=== PATIENT | female | born 1980 | race Caucasian/White ===

== ENCOUNTER 2018-03-04 09:37 | Emergency (ER) | payer OTHER, SELFPAY ==
[2018-03-04 09:38] VITALS: BP 118/78; PULSE 79; RESP 16; TEMP 36.8; O2SAT 100; BMI 31.4
[2018-03-04] MEDS: Carbamide Peroxide 15 ML Bottle 10 DRP OTIC (10:15)
[2018-03-04 11:12] VITALS: BP 118/68; PULSE 75; RESP 18; O2SAT 98
--- NOTE | 2018-03-04 12:15 | ED.VISSUMM ---
- ER Visit Summary Date of Service: 03/04/18 Chief Complaint: Acute lightheadedness History of Present Illness: The patient is a 38 F who presents with lightheadedness. When asked to explain what she means she told me that she feels unsteady and the room is spinning. She does report nausea and vomiting. She reports difficulty walking. She states she got up this morning and turned to the right when she got out of bed. She had no symptoms. When she stood up and turned to the left her symptoms began. She denies any double vision, blurred vision or loss of vision. Denies ringing in her ears or decreased hearing. She denies headache. She denies neck pain. She denies paresthesia, anesthesia motors upper or lower extremity. She denies any cardiac respiratory symptoms. She denies any other symptoms Physical Examination: Pleasant 38-year-old woman who appears slightly pale. Vital signs are normal. Right TM is not visualized secondary to cerumen impaction of the external auditory canal. The left TM is normal. Nares patent. Uvula midline. No erythema or exudate of posterior pharynx. Trach is midline. There is no stridor. There is no carotid bruit. Neck is supple. Heart is regular without murmur, gallop or rub. S1 and S2 are normal. Lungs are clear to auscultation with good movement of air bilaterally. Abdomen is soft nontender. Patient is alert and oriented ?3. Motor is 5 over 5. Sensory is intact. DTRs are symmetric with no clonus or Babinski sign. Cranial 2 through 12 are intact. Cerebellar testing is normal. Tiffany-Hallpike maneuver was positive with head position to the left. Test Results: None Emergency Department Course and Treatment: The proximal right ear and irrigation. The cerumen impaction was resolved. Her vertigo improved markedly. Roxie-Hallpike maneuver was repeated and she still had symptoms with nystagmus noted with head turns of the left only. Leandra maneuver was performed with resolution of her symptoms. The nystagmus fatigue. Treatment Plan: Crystal manipulation or paroxysmal benign positional vertigo and Debrox to alleviate cerumen impaction right Disposition: Discharged home in stable improved condition Impression: 1. Paroxysmal benign positional vertigo with crystal manipulation 2. Cerumen impaction, right This note was generated with Neof[employer]ation software. It may contain incorrect words, spelling, and punctuation that were not noted in review of the chart prior to signing ED Disposition - Plan for ED Patient: Chief Complaint: Dizziness Instructions: ED BPV Vertigo, ED Cerumen Impaction, Home Care Referrals: Aleksey Ramirez MD [Primary Care Provider] - As Needed
[2018-03-04 12:28] VITALS: RESP 18
== END 2018-03-04 12:29 | disposition home or self-care (01) ==
PROVIDERS: Emergency Provider Emergency Medicine; Family Provider Family Medicine; PCP Family Medicine
DX: H81.10 Benign paroxysmal vertigo, unspecified ear (principal); H61.21 Impacted cerumen, right ear
CPT/HCPCS: 99283

== ENCOUNTER → 2018-10-14 11:13 | Outpatient (CLI) | payer OTHER, SELFPAY ==
[2018-10-14 14:01] LABS: Hematocrit 38.9 % (37-47); Hemoglobin 12.7 g/dl (12.0-15.0); Mean Corp Hgb Conc 32.6 g/gl (32-36); Mean Corpuscular Volume 88.8 fL (81-99); Mean Platelet Vol. 10.2 fl (6.2-12.0); Platelet Count 302 K/mm3 (150-450); RBC Distribution Width SD 42.1 fl (35.1-43.9); Red Blood Count 4.38 M/mm3 (4.2-5.4); White Blood Count 7.2 K/mm3 (4.4-11.0)
[2018-10-14 14:07] LABS: Scan Indicated on CBC? Y/N NO
[2018-10-14 14:11] LABS: Thyroid Stim Hormone (TSH) 0.76 uIU/mL (0.358-3.74)
[2018-10-17 14:56] LABS: HPV HC, High Risk Negative (Negative)
[2018-10-17 14:57] LABS: HPV Reflexed? YES, CHARGE PATIENT
== END ==
PROVIDERS: PCP Family Medicine; Visit Provider Obstetrics & Gynecology
DX: Z12.4 Encounter for screening for malignant neoplasm of cervix (principal); R53.83 Other fatigue; R63.5 Abnormal weight gain
CPT/HCPCS: 36415; 82306; 84443; 85027; 87624; 88175; G0145

== ENCOUNTER → 2020-10-10 07:59 | Outpatient (CLI) | payer OTHER, SELFPAY ==
[2020-10-10 10:10] LABS: Absolute Lymphocyte Count 1.85 X10^3/uL (0.83-4.51); Absolute Neutrophil Count 4.7 X10^3/uL (2.0-7.7); Basophil# 0.05 X10^3/uL; Basophil% 0.7 % (0-1); Eosinophil# 0.19 X10^3/uL; Eosinophils% 2.6 % (0-5); Hematocrit 38.9 % (37-47); Hemoglobin 12.7 g/dL (12.0-15.0); Lymphocyte # 1.85 X10^3/ul (4.0); Lymphocyte % 25.2 % (19-41); Mean Corp Hgb Conc 32.6 g/dL (32-36); Mean Corpuscular Hgb 29.2 pg (27.0-32.0); Mean Corpuscular Volume 89.4 fL (81-99); Mean Platelet Vol. 10.5 fl (6.2-12.0); Monocyte# 0.55 X10^3/uL; Monocyte% 7.5 % (0-10); NRBC Flagged by Analyzer 0 % (0-5); Neutrophil # 4.68 X10^3/uL (2.7-7.7); Neutrophil % 63.7 % (47-70); Platelet Count 272 K/mm3 (150-450); RBC Distribution Width CV 12.6 % (11.6-14.6); RBC Distribution Width SD 41.3 fl (35.1-43.9); Red Blood Count 4.35 M/mm3 (4.2-5.4); White Blood Count 7.3 K/mm3 (4.4-11.0)
[2020-10-10 10:11] LABS: Color, Urine Straw (Yellow); Glucose, Dipstick Normal (Normal); Ketone-Dipstick Negative (Negative); Leukocyte Esterase-Dipstick Negative /ul (Negative); Nitrite-Dipstick Negative (Negative); Occult Blood-Urine 10 /ul (Negative); Protein-Dipstick Negative (Negative); Specific Gravity, Urine 1.025 (1.002-1.030); Urine Bilirubin Dipstick Negative (Negative); Urine Clarity Clear (Clear); Urine Urobilinogen Normal (Normal)
[2020-10-10 10:40] LABS: AST(SGOT) 18 U/L (15-37); Alanine Aminotransfer ALT/SGPT 27 U/L (13-56); Albumin, Serum 3.5 g/dL (3.2-5.0); Alkaline Phosphatase 94 U/L (45-117); Anion Gap 5 (5-15); BUN 13 mg/dL (7-18); BUN/Creat Ratio 20.8 RATIO (10-20); Calcium,Total 8.7 mg/dL (8.5-10.1); Chloride 110 mmol/L (98-107); Cholesterol 199 mg/dL (200); Creatinine, Serum 0.63 mg/dL (0.55-1.02); EST Glomerular Filtration Rate 113 mL/min (>60); Est Glom Filt Rate - Afr Amer 137 mL/min (>60); Globulin 3.5 g/dL (2.2-4.2); Glucose 85 mg/dL (74-106); High Density Lipoprotein 46 mg/dL; Sodium Level 142 mmol/L (136-145); Triglycerides 87 mg/dL; Very Low Density Lipoprotein 17 mg/dL (5-40)
== END ==
PROVIDERS: PCP Family Medicine; Referring Provider Family Medicine; Visit Provider Family Medicine
DX: Z00.00 Encounter for general adult medical examination without abnormal findings (principal); E78.5 Hyperlipidemia, unspecified
CPT/HCPCS: 36415; 80053; 80061; 81002; 85025

== ENCOUNTER → 2021-06-12 | Outpatient (CLI) | payer OTHER, SELFPAY | END | disposition home or self-care (01) | LOC: LABSPEC 14:29 | PROVIDERS: PCP Family Medicine; Visit Provider Obstetrics & Gynecology | DX: Z03.818 Encounter for observation for suspected exposure to other biological agents ruled out (principal) | CPT/HCPCS: 87635; U0005; U0003 ==

== ENCOUNTER 2021-06-15 14:47 | Observation (INO) | payer OTHER, SELFPAY ==
[2021-06-12 13:45] LABS: Hematocrit 37.7 % (37-47); Hemoglobin 12.3 g/dL (12.0-15.0); Mean Corp Hgb Conc 32.6 g/dL (32-36); Mean Corpuscular Hgb 28.5 pg (27.0-32.0); Mean Corpuscular Volume 87.5 fL (81-99); Mean Platelet Vol. 10.2 fl (6.2-12.0); Platelet Count 274 K/mm3 (150-450); RBC Distribution Width SD 38.5 fl (35.1-43.9); Red Blood Count 4.31 M/mm3 (4.2-5.4); White Blood Count 7.4 K/mm3 (4.4-11.0)
[2021-06-12 14:07] LABS: Magnesium 2.1 mg/dL (1.6-2.6)
[2021-06-15] VITALS (16 sets, daily range): BP systolic 105–139; BP diastolic 67–80; PULSE 71–89; RESP 12–20; TEMP 35.5–37.2; O2SAT 98–100; BMI 34.7
[2021-06-15] MEDS: Lactated Ringers 1,000 ML 40 ML IV (08:16)
[2021-06-15] MEDS: Gabapentin 600 MG Tablet PO (08:18)
[2021-06-15] MEDS: Celecoxib 200 MG Capsule 400 MG PO (08:18)
[2021-06-15] MEDS: dexAMETHasone 10 MG/ML Vial 8 MG IV (08:18)
[2021-06-15] MEDS: Acetaminophen 500 MG Tablet 1000 MG PO ×2 (08:18→23:58)
--- NOTE | 2021-06-15 09:35 | HYST_PTH ---
PATIENT: ABRAM PEGUERO LOC: [facility]3 U#:[id number] AGE/SX: 41/F ROOM: MS306 RE06/15/[address]: Dr. Scott Angeles MD : 1980 BED: 1 DIS: 06/16/2021 SPEC #: [id number] RECD: 06/15/21 12:57 STATUS: JUAQUIN CHAPMAN #: [id number] ANNE: 06/15/21 09:[address]: Scott Angeles DEPT: SURGICAL PATHOLOGY RECD BY: Emma Coleman ENTERED: 06/15/21 13:33 SP TYPE: HYSTERECT OTHR DR: Dr. Aleksey Ramirez MD Tissues: Uterus, NOS Procedures: Surgery Specimen Level V HEADER OPERATION: ERAS, lap robotic hysterectomy, salpingectomy, cystoscopy PRE-OP DIAGNOSIS: Abnormal uterine bleeding TISSUE SUBMITTED: Uterus, cervix, bilateral fallopian tubes MICROSCOPIC DIAGNOSIS Uterus, cervix, bilateral fallopian tubes, hysterectomy and bilateral salpingectomy: Cervix ? mild chronic inflammation. Endometrium ? proliferative endometrium. Myometrium ? focal minimal superficial adenomyosis. Bilateral fallopian tubes - no pathologic diagnosis. SJ:kota 06/16/2021 MICROSCOPIC DESCRIPTION Slides are reviewed. GROSS DESCRIPTION Received in fixative is one container labeled with the patient's name and designated uterus, cervix, bilateral fallopian tubes. The specimen consists of a hysterectomy specimen consisting of uterus and attached cervix and detached fragments of bilateral fallopian tubes, predominantly consists of fimbrial end. The uterus with cervix weighs 92 gm and measures 9 x 7 x 4 cm. The serosal surface is mckeon, glistening. The ectocervical mucosa is unremarkable. The external os is patulous in contour. The endocervical canal measures 3 cm in length and the endocervical mucosa is unremarkable. The triangular endometrial cavity measures 4 cm in length and up to 3 cm in width. The endometrium is mckeon, glistening without any mass lesion and measures 0.1 cm in thickness. Sections of the uterine wall do not reveal any mass lesion and measures up to 2 cm in thickness. The fallopian tubes are not identified as right or left and consist only of fimbrial end. One fimbrial end measures 1.5 x 1 x 0.5 cm. The second portion of fimbrial end measures 2.5 x 1.5 x 1 cm. [employer] sections are submitted in eight cassettes as follows: 1 - anterior cervix, 2 - posterior cervix, 3 & 4 - anterior uterine wall, 5 & 6 - posterior uterine wall, 7 ? one fallopian tube, 8 ? second fallopian tube. Fallopian tubes are submitted in entirety. / YENNIFER:kota 06/15/21 TC:5 CPT: 66389
--- NOTE | 2021-06-15 10:04 | HP.PCM.OB_ITS ---
History and Physical Date of Admission: 06/15/21 Surgical History and Physical Date: 06/15/2021 Name: RACHEL PEGUERO Age: 41 Date of : 1980 Rachel Peguero, a 41 year old female 2 0 0 0 2, presents for Robotic assisted total laparoscopic hysterectomy bilateral salpingectomy on June 15, 2021 at 9:30. -- Rachel is here today for hysterectomy for menorrhagia. No health changes. Educated pt on r/b/a of procedure, all questions answered and consent was signed. MEDICATIONS HISTORY: ALLERGIES: NKDA and No Known Drug Allergies Infections - Chicken pox Illnesses - none Accidents - no injuries of consequence Hospitalizations - SHORT STAY OBSERVATION, abdominal pain, age 18 [facility] Review of Systems: GENERAL - Denies fever, or chills SKIN - Denies skin changes EYES - Denies visual changes EARS - Denies difficulty hearing NOSE - Denies nasal congestion or bleeding MOUTH - Denies sore throat or difficulty swallowing NECK - Denies pain or swelling RESPIRATORY - Denies shortness of breath or wheezing CARDIOVASCULAR - Denies palpitations or chest pain GASTROINTESTINAL - Denies nausea, vomiting, diarrhea, constipation GENITOURINARY - Denies dysuria, frequency of urination, incontinence of urine MUSCULOSKELETAL - Denies joint or muscle pain NEUROLOGICAL - Denies localized numbness or weakness PSYCHIATRIC - Denies depression or anxiety ENDOCRINE - Denies heat or cold intolerance, weight loss or gain HEMATO-IMMUNOLOGIC - Denies excessive bleeding with cuts SOCIAL HISTORY: Alcohol Use - socially Smoking - Never Diet - balanced Diet Lifestyle - high stress lifestyle and Exercise - regular Seat Belt Use - always 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 Father: Gallbladder removed 2011, sleep disorder and Hypertension. MENSTRUAL HISTORY: LMP Known?- DefiniteAmount/Duration - 5-6 DAYS, Regularity - Regular, Frequency - monthly days, LMP - 06/07/21, Age Onset Menarche - 14 PAST PREGNANCIES: Total Pregnancies - 2; Full Term Pregnancies - 2; Premature - 0; Abortions, Induced - 0; Abortions, Spontaneous - 0; Ectopics - 0; Multiple Births - 0; Living Children - 2 SURGICAL HISTORY: 1. 06/20/2016 Lap bilateral tubal fulguration ; Chely Duke M.D. - PHYSICAL EXAM BP- 128/92 Sitting, Right arm, large cuff Weight- 249.76441 lbs Height- 71 inch BMI:[id number] CONSTITUTIONAL - NAD, well nourished, and well developed SKIN - No rash, lesions, or ulcers HEENT - Normocephalic, PERRLA, EOMI NECK - No nodes, no nuchal rigidity and thyroid normal size and texture ABDOMEN - Without hepatosplenomegaly, distention, masses, rebound, or guarding; normal bowel sounds; no hernias EXTREMITIES - No edema or calf tenderness NEUROLOGICAL - Cranial nerves II-XII grossly intact PSYCHIATRIC - A and O to time, place, person, mood and affect External Genital Vagina - non-tender without lesions Urethra/Urethral Meatus - non-tender Bladder - non-tender Vagina - vaginal rothman are pink and moist without loss of rugae and no evidence of atrophy Cervix - without cervical motion tenderness and has normal size and features without evident lesions Uterus - 5-6 cm in size, mobile and nontender Adnexa - clear without masses or tenderness ASSESSMENT/PLAN: 1. Encounter For Surgical Aftercare Following Surgery On The Genitourinary System Pt scheduled for [facility] BS and cystoscopy for leiomyomas and abnormal uterine bleeding Educated pt on r/b/a, discussed intercourse, ovaries, cervical cancer and ovarian cancer risk after surgery. Discussed postoperative recovery and FMLA. All questions answered, consent signed 2. Abnormal Uterine And Vaginal Bleeding, Unspecified Pt with regular but heavy periods that she has to wear a tampon and a pad at the same time, soaking through super tampons EMB benign.
[2021-06-15] MEDS: Cefazolin 2 GM in 0.9% Normal Saline 100 ML IV (10:52)
[2021-06-15 11:10] LABS: Bedside Glucose 70 mg/dL (70-110)
--- NOTE | 2021-06-15 12:51 | PCM.DC ---
Discharge Instructions Diet Discharge Diet: No restrictions Activity Discharge Activity: Return to Normal Activity, May Drive, May Shower and - (No tub baths for 2 weeks) May resume sexual activity in: 4-6 weeks Lifting Restrictions: No lifting over 25 pounds for 2 to 3 weeks Dressing / Incision Call your doctor if your incision/area has: Continuous Slow Oozing and Foul Smelling Discharge Call your doctor if you observe: Fever of 101 or Higher, Shortness of breath and Chest pain Follow Up Care Please Follow Up With: Scott Angeles MD When: 2 weeks postoperatively Test Results: Test results from this visit will be discussed in further detail at your follow-up appointment, if applicable. Discharge Plan Admission Primary Reason for Your Visit: hysterectomy Attending Provider: Scott Angeles Primary Care Provider: Aleksey Ramirez Discharge Orders/Prescriptions Prescriptions: New oxycodone 5 mg Tablet 5 mg PO Q6H PRN PRN (Reason: Pain Score 6-10/10) 5 Days Qty: 20 RF: 0 Continued multivitamin Capsule 1 cap PO DAILY RF: 0 Referrals / Follow Up: Aleksey Ramirez MD [Primary Care Provider] - Disposition Disposition (needs filled in before D/C Order can be placed): Home, Self Care
--- NOTE | 2021-06-15 12:52 | OP.PCM_ITS ---
Report of Operation Date of Procedure: 06/15/21 Pre-Operative Diagnosis: Abnormal uterine bleeding, leiomyomas Post-Operative Diagnosis: Abnormal uterine bleeding, leiomyomas Surgery/Procedure Performed:: Robotic assisted total laparoscopic hysterectomy bilateral salpingectomy, cystoscopy Description of Surgical Findings:: Surgeon: Scott Angeles MD Anesthesia: General EBL: 50 cc Urine output: 1300 cc IV fluids: 1000 cc Complications: None Specimen: Cervix, uterus, bilateral fallopian tubes Findings: Normal uterus, tubes, and ovaries. Post procedure cystoscopy with bilateral ureteral jets and no pathology noted. Consent: Patient with abnormal uterine bleeding in need of robotic assisted total laparoscopic hysterectomy bilateral salpingectomy and cystoscopy. Patient understands the risk of the procedure include but are not limited to visceral or vascular injury, prolonged hospitalization, blood loss and need for transfusion, reoperation. Patient stated understanding and wished to proceed. All questions were answered and consent was signed. Procedure: Patient was brought back to the OR where general anesthesia was found to be adequate. 2 g of Ancef were given for infection prophylaxis. Patient was prepared and draped in a dorsal lithotomy position with yellowfin stirrups. A weighted speculum was placed in the posterior aspect of the vagina and cervical dilators were used to dilate the cervix. Uterine manipulator was placed. Varies needle was inserted at the umbilicus and water safety test was passed. Abdomen was insufflated, 8 mm midline supraumbilical trocar was inserted under direct visualization. Laparoscope was inserted and above findings were noted. Bilateral lower quadrant 8 mm trochars were inserted under direct visualization. Left upper quadrant 12 mm trocar was inserted under direct visualization. Robot was docked. Using a fenestrated bipolar and a monopolar scissors, the right round ligament was identified cut and cauterized, anterior and posterior portions of the broad ligament were dissected. Bladder flap was developed. Right utero-ovarian ligament was identified cut and cauterized. Right uterine vessels were skeletonized cut and cauterized, lateralized beyond the level of the operative field. Right fallopian tube was identified out to the fimbria and the mesosalpinx was cut and cauterized, fallopian tube removed and sent to pathology. Left round ligament was identified cut and cauterized, anterior and posterior portions of the broad ligament were dissected. Bladder flap was now developed beyond the level of the operative field. Left utero-ovarian ligament was cut and cauterized. Left uterine vessels were skeletonized cut and cauterized, lateralized beyond the level of the operative field. Left fallopian tube was identified out to the fimbria and the mesosalpinx was cut and cauterized. Left fallopian tube was sent to pathology. Circumferential colpotomy was made along the colpotomy cup. Uterus was removed from the abdomen and sent to pathology. Good hemostasis was noted. Colpotomy was closed via a running V lock suture. Good hemostasis was noted. Post procedure cystoscopy was performed, above findings were noted. Bilateral ureteral jets were noted and no pathology was noted. Using a Jayden Ibrahim left upper quadrant 12 mm trocar fascia was closed with Vicryl. Abdomen was desufflated and trochars were removed under direct visualization, good hemostasis was noted. Laparoscopic incisions were closed in a subcutaneous fashion. All counts were correct x2. Patient tolerated the procedure well and was brought to recovery in a stable condition. circuits engineer: Erick Khalil
[2021-06-15] MEDS: Lactated Ringers 1,000 ML 70 ML IV (13:24)
--- NOTE | 2021-06-15 14:00 | SUR.PHASEI ---
Addendum entered by John Gonzalez 06/15/21 14:08: TORADOL 30 MG GIVEN IV PER ANESTHESIA ORDERS IN PACU WHICH ARE WRITTEN ORDERS. PHARMACY RETIMES THIS WHEN I CALLED. Original Note: TORADOL 30 MG GIVEN 1V VIA
--- NOTE | 2021-06-15 16:09 | WOUNDNOTE ---
Pt to room via bed from OR. pt is very groggy. awakens for a short time and quickly falls back to sleep. neli pad is dry. patient has lap sites to abdomen that are intact with dermabond. hypoactive BS. no drainage noted.
[2021-06-15] MEDS: oxyCODONE 5 MG Tablet PO (20:25)
[2021-06-15] MEDS: Docusate Sodium 100 MG Capsule PO (20:25)
[2021-06-15] MEDS: Ketorolac 30 MG/ML Syringe IV (20:26)
[2021-06-15] MEDS: BENZOCAINE/MENTHOL 1 LOZENGE MUCOUS MEM (21:44)
[2021-06-16] MEDS: Ketorolac 30 MG/ML Syringe IV ×2 (02:23→07:56)
[2021-06-16] MEDS: BENZOCAINE/MENTHOL 1 LOZENGE MUCOUS MEM (02:24)
[2021-06-16] MEDS: oxyCODONE 5 MG Tablet PO ×2 (02:28→07:25)
[2021-06-16 03:38] VITALS: BP 118/75; PULSE 75; RESP 16; TEMP 36.9; O2SAT 96
[2021-06-16] MEDS: Acetaminophen 500 MG Tablet 1000 MG PO (05:47)
[2021-06-16 05:51] LABS: Hematocrit 32.9 % (37-47); Mean Corp Hgb Conc 33.4 g/dL (32-36); Mean Corpuscular Hgb 29.2 pg (27.0-32.0); Mean Corpuscular Volume 87.3 fL (81-99); Mean Platelet Vol. 10.1 fl (6.2-12.0); Platelet Count 311 K/mm3 (150-450); RBC Distribution Width CV 12.5 % (11.6-14.6); RBC Distribution Width SD 39.9 fl (35.1-43.9); Red Blood Count 3.77 M/mm3 (4.2-5.4)
[2021-06-16 07:45] VITALS: BP 101/62; PULSE 72; RESP 18; TEMP 36.5; O2SAT 96
--- NOTE | 2021-06-16 07:46 | NURSING ---
Pt had been up ambulating in the halls. tolerated very well. denies passing much flatus yet. has been urinating well.
[2021-06-16 07:50] VITALS: BP 115/72; PULSE 78; RESP 18; TEMP 36.7; O2SAT 96
[2021-06-16] MEDS: 0.9% Saline Lock 10 ML Syringe IV (07:57)
--- NOTE | 2021-06-16 08:37 | PCM.PN.OB ---
Subjective Subjective No overnight complaints. Pain well controlled. Tolerating regular diet. Ambulating. Voiding spontaneously. Objective Data Objective Data Vital Signs: Vital Signs Temp Pulse Resp BP Pulse Ox 98.0 F 78 18 115/72 96 06/16/21 07:50 06/16/21 07:50 06/16/21 07:50 06/16/21 07:50 06/16/21 07:50 Oxygen Flow Rate (L/min) 4 Oxygen Delivery Method Room Air Weight: 249 lb 1.957 oz Body Mass Index (BMI) 34.7 Intake & Output: Intake and Output for Last 24 Hours 06/14/21 06/15/21 06/16/21 23:59 23:59 23:59 Intake Total 2216.5 / 2216.5 0 / 0 Output Total 1900 / 1900 1100 / 1100 Balance 316.5 / 316.5 -1100 / -1100 Lab / Micro Data Result Diagrams: 06/16/21 05:14 Labs: Laboratory Results - last 24 hr 06/15/21 08:00: POC Glucose 70 06/16/21 05:14: WBC 18.0 H, RBC 3.77 L, Hgb 11.0 L, Hct 32.9 L, MCV 87.3, MCH 29.2, MCHC 33.4, RDW Std Deviation 39.9, RDW Coeff of Susana 12.5, Plt Count 311, MPV 10.1 Physical Exam Const alert, oriented x3, no apparent distress, average body habitus, healthy appearing and well nourished HEENT normocephalic and moist oral mucous membranes Head and Scalp: atraumatic Face and Sinus: normal facial exam Neck full ROM Resp normal respiratory effort, no retractions and no use of accessory muscles Extremity normal to inspection, full ROM and no clubbing, cyanosis or edema Psych mental status grossly normal, affect normal, speech normal and activity/motor behavior normal Assessment & Plan (1) Acute postoperative pain: PLAN: Postoperative day 1 status post robotic assisted total laparoscopic hysterectomy bilateral salpingectomy, cystoscopy. Pain well controlled. Tolerating regular diet. Ambulating. Voiding spontaneously. Okay to discharge home today
[2021-06-16] MEDS: Docusate Sodium 100 MG Capsule PO (10:16)
[2021-06-16 10:18] VITALS: BP 115/61; PULSE 75; RESP 18; TEMP 36.7; O2SAT 98
--- NOTE | 2021-06-16 10:32 | PHA.DC.MC ---
Pharmacy Service has performed discharge medication reconciliation and counseling for this patient. The patient was counseled on the following discharge medications and changes in medications for homegoing were reviewed. 1. OXYCODONE The Reason for Use, instructions for use, and potential side effects were reviewed for all new medications. The patient's questions regarding all of their medications were answered. The patient was able to verbally demonstrate an understanding of their discharge medications. Home Medications multivitamin 1 cap PO DAILY 06/06/21 oxycodone 5 mg PO Q6H PRN PRN 5 Days #20 tab 06/15/21 The patient's discharge medication list was reviewed for discrepancies and discrepancies were resolved.
== END 2021-06-16 10:55 | disposition home or self-care (01) ==
LOC: MS3 06-16 09:49 → ACINP 06-16 13:39 → SDC 06-16 13:40 → MS3 06-16 13:40
PROVIDERS: Anesthesiology; Admitting Provider Obstetrics & Gynecology; PCP Family Medicine; Referring Provider Obstetrics & Gynecology; Visit Provider Obstetrics & Gynecology
PROC: 0UT90ZZ Resection of Uterus, Open Approach (ICD-10-PCS; CPT 58571; principal; 2021-06-15 09:15)
DX: D25.9 Leiomyoma of uterus, unspecified (principal); N92.1 Excessive and frequent menstruation with irregular cycle
CPT/HCPCS: 00840; 58571; S2900; 36415; 82962; 83735; 85027; 86850; 86900; 86901; 88307; 96374; 96376; 99218; 99251; J7120; A4216; G0378; G0463; J2405

== ENCOUNTER 2021-12-29 06:14 | Emergency (ER) | payer BC, SELFPAY ==
[2021-12-29 06:15] VITALS: BP 133/87; PULSE 121; RESP 16; TEMP 38.2; O2SAT 95; BMI 34.2
--- NOTE | 2021-12-29 06:38 | EDS_ITS ---
HPI History of Present Illness Chief Complaint: General Illness Informant: patient Onset/Context/Timing Onset: Days (2) Context: Gradual Onset Timing: Continuous Quality: Spinning Location: Head Current Severity: Moderate Maximum Severity: Moderate Worsened by: Turning head, position changes Relieved by: Remaining still Associated Symptoms Associated Symptoms: Nausea, headache sensitive to light Narrative Narrative: Patient has had 2 or 3 days worth of symptoms that started with soreness and stiffness in her right neck and upper back rhomboids area that she noticed when she woke up, felt like she slept on her neck wrong, then she started having dizziness that feels like the room spinning along with nausea and blurry vision when she is symptomatic. Position changes and movement is making that worse, rest makes it better. No known fevers however she measured 100.7 here in triage. 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 No congestion, runny nose, sinus congestion, she states her ears have a fullness sensation that is unusual, that is new since she started having vertigo but she denies any earache or tinnitus. No ear discharge. No diplopia. No urinary symptoms. No dyspnea. No vomiting or diarrhea. PFSH PFSH Medical History Alcohol use Anemia History of colitis History of stress test Non-smoker Home Medications cyclobenzaprine 10 mg tablet 10 mg PO TID PRN Muscle Spasm #20 TABLETS 12/29/21 [Rx Last Taken Unknown] meclizine 25 mg tablet 25 mg PO Q8H PRN PRN Dizziness #20 tabs 12/29/21 [Rx Last Taken Unknown] metoclopramide HCl 10 mg tablet 10 mg PO Q6H PRN nausea or headache #20 tabs 12/29/21 [Rx Last Taken Unknown] Allergy/AdvReac Type Severity Reaction Status Date / Time No Known Allergies Allergy Verified 06/15/21 08:13 Surgical History Hx of colonoscopy Hx of tubal ligation Social History Smoking Status: Never smoker ROS ROS ED Constitutional Constitutional ED: Denies chills or fever(s) Eyes Eyes: Reports blurry vision bilateral; Denies diplopia ENT ENT ED: Reports other Details: Change in hearing, see HPI ; Denies rhinorrhea or sore throat Cardiovascular Cardiovascular: Denies chest pain or palpitations Respiratory/Chest Respiratory/Chest: Denies cough or dyspnea Gastrointestinal Gastrointestinal: Reports nausea; Denies abdominal pain, diarrhea or vomiting Genitourinary Genitourinary ED: Denies dysuria or hematuria Musculoskeletal Musculoskeletal: Reports back pain and neck pain Integumentary Denies abscess or rash Neurologic Neurologic: Reports as per HPI, headache(s) and vertigo; Denies paresthesias or weakness Psychiatric Psychiatric: Denies anxiety or suicidal thoughts EXAM Physical Exam Const Vital Signs: 12/29/21 06:15 12/29/21 06:25 Temperature 100.7 F H Temperature Source Temporal Pulse Rate 121 H Respiratory Rate 16 Respiratory Effort Normal Non-Labored Respiratory Pattern Normal Blood Pressure 133/87 H Blood Pressure Mean 102 Pulse Ox 95 Oxygen Delivery Method Room Air Positive well nourished and well developed General Appearance ED: well developed and NAD HEENT Reports EAC's normal, TM's normal bilaterally and moist mucous membranes HEENT Narrative: No sinus tenderness normocephalic and atraumatic Eyes PERRL and EOMs intact bilaterally Eyes Narrative: Bilateral horizontal nystagmus with fast component. No rotatory or vertical nystagmus. Mild photophobia. Neck no lymphadenopathy Neck Narrative: Neck is supple, limited range of motion due to pain when she does more to the right, no meningismus Chest Wall inspection of chest normal Resp normal respiratory effort and clear to auscultation bilaterally Cardio regular rate, regular rhythm and no murmurs Rate: tachycardic GI non-tender and non-distended Auscultation: normoactive bowel sounds Palpation: soft Back/Spine no CVA tenderness Back/Spine Narrative: Painful range of motion with sitting forward in bed, tender in the right rhomboids and up into the right paraspinal cervical musculature which are normal in appearance as is the rest of her back, no other areas of tenderness including the spine/midline. General Back: other FROM Extremity normal to inspection General Extremety ED: Negative for edema, pulses abnormal or tenderness General Extremity: Negative for edema or pulses abnormal Neuro oriented x3, CN's II-XII intact bilaterally and no sensory deficits noted Neuro Narrative: Normal [id number] and [id number] bilaterally Sensorium / Orientation: awake and alert Motor Exam: strength 5/5 throughout Psych mental status grossly normal Skin no rashes or lesions noted and no wounds MDM MDM MDM Narrative Medical decision making narrative: Patient has temperature of 100.7, likely explaining at least partially her tachycardia. Treated this with Tylenol, her heart rate did come down. Obtained rapid COVID and influenza swabs, they are both negative. In my opinion with this early possible illness, negative rapid COVID does not necessarily rule it o ut during current variants omicron 4 and 5. Therefore I am sending a PCR. Discussed this with the patient and she is okay with that. She was treated here with Toradol, Zofran, meclizine, and Norflex; she did have some improvement in all of her symptoms but still has almost a migrainous headache, it was throbbing but is dulled now without throbbing, still little photophobic with some blurry vision and states her neck feels stiff but not as bad as before. She is able to move it, she is having trouble moving her chin down to her chest. I discussed the unlikely possibility of meningitis, and requiring a lumbar puncture in order to rule that out fully and to evaluate her for that. She does not want that done today. She is okay going home on prescriptions for Reglan, meclizine, and cyclobenzaprine to use as needed for her symptoms, and returning if she is getting worse or having new problems. She has no focal neurologic deficits, symptoms or signs of mastoiditis, diplopia, nor any objective findings of central vertigo to suggest that she needs any imaging at the time of evaluation. Discharge Plan Triage Chief Complaint: General Illness ED Provider: Johnie Quevedo Dx/Rx/DC Orders Clinical Impression: Fever, Peripheral vertigo, Headache, Strain of right trapezius muscle Instructions: ED Neck Sprain or Strain, ED Vertigo, Unspecified Prescriptions: New metoclopramide HCl [metoclopramide HCl] 10 MG tablet 10 mg PO Q6H PRN (Reason: nausea or headache) Qty: 20 0RF meclizine [meclizine] 25 MG tablet 25 mg PO Q8H PRN PRN (Reason: Dizziness) Qty: 20 0RF cyclobenzaprine [cyclobenzaprine] 10 MG tablet 10 mg PO TID PRN (Reason: Muscle Spasm) Qty: 20 0RF Primary Care Provider: Aleksey Ramirez Referrals: Aleksey Ramirez MD [Primary Care Provider] - Activity Restrictions/Additional Instructions: Stay home and rest until your COVID test comes back and if negative, and you are feeling better, you may resume activities. If you are feeling worse, or having other concerning symptoms in addition to what you have now, return to the ER for further evaluation. You can take Tylenol and/or ibuprofen along with the prescriptions if you need. Disposition Disposition: Home, Self Care
[2021-12-29] MEDS: Acetaminophen 325 MG Tablet 650 MG PO (07:16)
[2021-12-29] MEDS: Ondansetron ODT 4 MG Tablet 8 MG PO (07:16)
[2021-12-29] MEDS: Meclizine HCl 25 MG Tablet PO (07:17)
[2021-12-29] MEDS: Ketorolac 60 MG/2 ML Vial IM (07:18)
[2021-12-29] MEDS: Orphenadrine 60 MG/2 ML Ampul IM (07:18)
[2021-12-29 08:22] VITALS: BP 114/67; PULSE 71; RESP 16; O2SAT 99
== END 2021-12-29 08:30 | disposition home or self-care (01) ==
PROVIDERS: Emergency Provider Emergency Medicine; PCP Family Medicine; Visit Provider Emergency Medicine
DX: R50.9 Fever, unspecified (principal); H81.399 Other peripheral vertigo, unspecified ear; R51.9 Headache, unspecified; S46.812A Strain of other muscles, fascia and tendons at shoulder and upper arm level, left arm, initial encounter; X58.XXXA Exposure to other specified factors, initial encounter; Z20.822 Contact with and (suspected) exposure to COVID-19; R11.0 Nausea; R00.0 Tachycardia, unspecified; Z79.899 Other long term (current) drug therapy
CPT/HCPCS: 87428; 87635; 96372; 99285; U0003; U0005

== ENCOUNTER → 2022-01-23 | Outpatient (CLI) | payer BC, SELFPAY ==
[2022-01-23 11:58] LABS: Hematocrit 38.8 % (37-47); Hemoglobin 13.2 g/dL (12.0-15.0); Mean Corpuscular Hgb 29.7 pg (27.0-32.0); Mean Corpuscular Volume 87.4 fL (81-99); Mean Platelet Vol. 10.2 fl (6.2-12.0); Platelet Count 307 K/mm3 (150-450); RBC Distribution Width CV 12.8 % (11.6-14.6); RBC Distribution Width SD 41.1 fl (35.1-43.9); Red Blood Count 4.44 M/mm3 (4.2-5.4); White Blood Count 8.9 K/mm3 (4.4-11.0)
[2022-01-23 12:11] LABS: AST(SGOT) 18 U/L (15-37); Alanine Aminotransfer ALT/SGPT 25 U/L (13-56); Albumin, Serum 3.8 g/dL (3.2-5.0); Alkaline Phosphatase 84 U/L (45-117); Anion Gap 8 (5-15); BUN 13 mg/dL (7-18); BUN/Creat Ratio 22.1 RATIO (10-20); Calcium,Total 8.8 mg/dL (8.5-10.1); Chloride 105 mmol/L (98-107); Creatinine, Serum 0.59 mg/dL (0.55-1.02); EST Glomerular Filtration Rate 120 mL/min (>60); Est Glom Filt Rate - Afr Amer 145 mL/min (>60); Globulin 3.9 g/dL (2.2-4.2); Glucose 88 mg/dL (74-106); Potassium 3.9 mmol/L (3.5-5.1); Protein, Total 7.7 g/dL (6.4-8.2); Sodium Level 138 mmol/L (136-145); T4 Free Direct 1.13 ng/dL (0.76-1.46); Thyroid Stim Hormone (TSH) 1.33 uIU/mL (0.358-3.74)
== END | disposition home or self-care (01) ==
PROVIDERS: PCP Family Medicine; Visit Provider Obstetrics & Gynecology
DX: N64.4 Mastodynia (principal)
CPT/HCPCS: 36415; 80053; 84439; 84443; 85027